=== PATIENT | female | born 1950 | race Asian ===

== ENCOUNTER 2019-07-31 18:35 | Emergency (ER) | payer BC ==
[~2019-07-31] VITALS: Ht 154.9 cm; Wt 60.3 kg
[2019-07-31 18:46] VITALS: BP 115/65; Ht 154.9 cm; Wt 60.3 kg
== END 2019-07-31 22:48 | disposition home or self-care (01) ==
LOC: ED 18:35
DX: M26.602 Left temporomandibular joint disorder, unspecified (principal)